=== PATIENT | male | born 1940 | race Caucasian/White ===

== ENCOUNTER 2018-02-01 10:03 | Outpatient (CLI) | payer OTHER ==
[~2018-02-01 10:03] MED LIST: ATACAND4 MG; CHLORTHALIDONE25 MG; CLOBETASOL 0.0515 GM; IMDUR 60MG60 MG; LIPITOR20 MG; PLAVIX75 MG; RECTICARE30 GM TP; RYTHMOL225 MG; TOPROL XL50 M1; TRADJENTA5 MG; ULTRACET PO; ZETIA10 MG
== END 2018-02-01 10:06 | disposition home or self-care (01) ==
LOC: LAB 10:03
DX: D51.0 Vitamin B12 deficiency anemia due to intrinsic factor deficiency (principal); D51.1 Vitamin B12 deficiency anemia due to selective vitamin B12 malabsorption with proteinuria; D69.59 Other secondary thrombocytopenia; D47.2 Monoclonal gammopathy; Z95.1 Presence of aortocoronary bypass graft; I10 Essential (primary) hypertension; E08.65 Diabetes mellitus due to underlying condition with hyperglycemia; J03.90 Acute tonsillitis, unspecified; D50.8 Other iron deficiency anemias; D51.8 Other vitamin B12 deficiency anemias; E78.4 Other hyperlipidemia; I73.89 Other specified peripheral vascular diseases; K75.89 Other specified inflammatory liver diseases

== ENCOUNTER 2018-06-22 10:43 | Outpatient (CLI) | payer OTHER | END 2018-06-22 11:51 | disposition home or self-care (01) | LOC: LAB 10:43 | DX: N18.3 Chronic kidney disease, stage 3 (moderate) (principal); E11.21 Type 2 diabetes mellitus with diabetic nephropathy; D63.1 Anemia in chronic kidney disease; N30.00 Acute cystitis without hematuria; E78.4 Other hyperlipidemia; E03.8 Other specified hypothyroidism ==

== ENCOUNTER → 2018-06-24 11:25 | Outpatient (CLI) | payer OTHER | END | disposition home or self-care (01) | LOC: LAB 11:25 | DX: N18.3 Chronic kidney disease, stage 3 (moderate) (principal); E11.21 Type 2 diabetes mellitus with diabetic nephropathy; D63.1 Anemia in chronic kidney disease; N30.00 Acute cystitis without hematuria; E78.4 Other hyperlipidemia; E03.8 Other specified hypothyroidism ==

== ENCOUNTER 2018-07-22 10:18 | Outpatient (CLI) | payer OTHER | END 2018-07-22 10:23 | disposition home or self-care (01) | LOC: LAB 10:18 | DX: N40.0 Benign prostatic hyperplasia without lower urinary tract symptoms (principal); R97.20 Elevated prostate specific antigen [PSA]; R31.9 Hematuria, unspecified ==

== ENCOUNTER 2018-08-22 08:17 | Outpatient (CLI) | payer OTHER | END 2018-08-22 08:23 | disposition home or self-care (01) | LOC: LAB 08:17 | DX: D69.59 Other secondary thrombocytopenia (principal); D51.0 Vitamin B12 deficiency anemia due to intrinsic factor deficiency; D51.1 Vitamin B12 deficiency anemia due to selective vitamin B12 malabsorption with proteinuria; I48.2 Chronic atrial fibrillation; D47.2 Monoclonal gammopathy; Z95.1 Presence of aortocoronary bypass graft; I10 Essential (primary) hypertension; E08.65 Diabetes mellitus due to underlying condition with hyperglycemia; I73.89 Other specified peripheral vascular diseases; K75.89 Other specified inflammatory liver diseases; J03.80 Acute tonsillitis due to other specified organisms; D50.8 Other iron deficiency anemias; D51.8 Other vitamin B12 deficiency anemias; E78.2 Mixed hyperlipidemia; E03.8 Other specified hypothyroidism ==

== ENCOUNTER 2018-08-22 09:20 | Outpatient (CLI) | payer OTHER | END 2018-08-22 11:13 | disposition home or self-care (01) | LOC: SONOGRAMA 09:20 | DX: R31.9 Hematuria, unspecified (principal) ==

== ENCOUNTER 2018-10-08 15:37 | Outpatient (CLI) | payer OTHER | END 2018-10-08 16:07 | disposition home or self-care (01) | LOC: NUCLEAR 15:37 | DX: I67.89 Other cerebrovascular disease (principal) ==

== ENCOUNTER 2018-12-05 10:12 | Outpatient (CLI) | payer OTHER | END 2018-12-05 13:15 | disposition home or self-care (01) | LOC: LAB 10:12 | DX: I10 Essential (primary) hypertension (principal); I11.9 Hypertensive heart disease without heart failure; I25.10 Atherosclerotic heart disease of native coronary artery without angina pectoris; E78.49 Other hyperlipidemia; D69.59 Other secondary thrombocytopenia; D51.0 Vitamin B12 deficiency anemia due to intrinsic factor deficiency; D51.1 Vitamin B12 deficiency anemia due to selective vitamin B12 malabsorption with proteinuria; I48.2 Chronic atrial fibrillation; D47.2 Monoclonal gammopathy; Z95.1 Presence of aortocoronary bypass graft; E08.65 Diabetes mellitus due to underlying condition with hyperglycemia; I73.9 Peripheral vascular disease, unspecified; K75.9 Inflammatory liver disease, unspecified; J03.90 Acute tonsillitis, unspecified; D50.8 Other iron deficiency anemias; D51.8 Other vitamin B12 deficiency anemias; E78.2 Mixed hyperlipidemia; E03.8 Other specified hypothyroidism; R97.0 Elevated carcinoembryonic antigen [CEA]; R97.8 Other abnormal tumor markers; N18.3 Chronic kidney disease, stage 3 (moderate); E11.21 Type 2 diabetes mellitus with diabetic nephropathy; D63.1 Anemia in chronic kidney disease; N30.00 Acute cystitis without hematuria ==

== ENCOUNTER 2018-12-05 11:38 | Outpatient (CLI) | payer OTHER | END 2018-12-05 11:41 | disposition home or self-care (01) | LOC: SONOGRAMA 11:38 | DX: R10.9 Unspecified abdominal pain (principal); R31.9 Hematuria, unspecified; N18.3 Chronic kidney disease, stage 3 (moderate) ==

== ENCOUNTER 2018-12-09 10:50 | Outpatient (CLI) | payer OTHER | END 2018-12-09 11:06 | disposition home or self-care (01) | LOC: LAB 10:50 | DX: I10 Essential (primary) hypertension (principal); I11.9 Hypertensive heart disease without heart failure; I25.10 Atherosclerotic heart disease of native coronary artery without angina pectoris; E78.49 Other hyperlipidemia; N18.3 Chronic kidney disease, stage 3 (moderate); E11.21 Type 2 diabetes mellitus with diabetic nephropathy; N30.00 Acute cystitis without hematuria; E03.8 Other specified hypothyroidism ==

== ENCOUNTER → 2019-02-10 | Outpatient (CLI) | payer OTHER | END | disposition home or self-care (01) | LOC: NUCLEAR 08:27 | DX: K62.5 Hemorrhage of anus and rectum (principal); K59.09 Other constipation; Z86.010 Personal history of colon polyps | CPT/HCPCS: 78264; A9541 ==

== ENCOUNTER → 2019-02-20 | Day surgery (SDC) | payer OTHER | END | disposition home or self-care (01) | LOC: ADM 02-17 07:00 → AMB-ENDOS 06:25 → ADM 02-21 09:45 | DX: D12.0 Benign neoplasm of cecum (principal) ==

== ENCOUNTER → 2019-09-24 09:05 | Outpatient (CLI) | payer OTHER | END | disposition home or self-care (01) | LOC: LAB 09:05 | DX: D12.0 Benign neoplasm of cecum (principal); Z86.010 Personal history of colon polyps; D50.8 Other iron deficiency anemias; I10 Essential (primary) hypertension; D69.59 Other secondary thrombocytopenia; D51.0 Vitamin B12 deficiency anemia due to intrinsic factor deficiency; D51.1 Vitamin B12 deficiency anemia due to selective vitamin B12 malabsorption with proteinuria; D47.2 Monoclonal gammopathy; Z95.1 Presence of aortocoronary bypass graft; E78.49 Other hyperlipidemia; E08.65 Diabetes mellitus due to underlying condition with hyperglycemia; I73.89 Other specified peripheral vascular diseases; K75.89 Other specified inflammatory liver diseases; J03.90 Acute tonsillitis, unspecified; D51.8 Other vitamin B12 deficiency anemias; K90.89 Other intestinal malabsorption; R97.0 Elevated carcinoembryonic antigen [CEA]; R97.20 Elevated prostate specific antigen [PSA] ==

== ENCOUNTER 2019-09-29 08:46 | Day surgery (SDC) | payer OTHER | END 2019-09-29 12:49 | disposition home or self-care (01) | LOC: AMB-ENDOS 08:46 | DX: D12.0 Benign neoplasm of cecum (principal); K57.30 Diverticulosis of large intestine without perforation or abscess without bleeding ==

== ENCOUNTER → 2019-11-07 | Outpatient (CLI) | payer OTHER | END | disposition home or self-care (01) | LOC: MRI 09:23 | DX: G45.1 Carotid artery syndrome (hemispheric) (principal); I63.30 Cerebral infarction due to thrombosis of unspecified cerebral artery | CPT/HCPCS: 70544 ==

== ENCOUNTER → 2020-03-26 08:43 | Outpatient (CLI) | payer OTHER | END | disposition home or self-care (01) | LOC: LAB 08:43 | PROVIDERS: ATTEND Internal Medicine Hematology & Oncology | DX: D50.8 Other iron deficiency anemias (principal); I10 Essential (primary) hypertension; D69.59 Other secondary thrombocytopenia; D51.0 Vitamin B12 deficiency anemia due to intrinsic factor deficiency; D51.1 Vitamin B12 deficiency anemia due to selective vitamin B12 malabsorption with proteinuria; I48.20 Chronic atrial fibrillation, unspecified; D47.2 Monoclonal gammopathy; Z95.1 Presence of aortocoronary bypass graft; E78.49 Other hyperlipidemia; E08.65 Diabetes mellitus due to underlying condition with hyperglycemia; I73.89 Other specified peripheral vascular diseases; K75.89 Other specified inflammatory liver diseases; J03.90 Acute tonsillitis, unspecified; D51.8 Other vitamin B12 deficiency anemias; E55.9 Vitamin D deficiency, unspecified; K90.89 Other intestinal malabsorption; E03.8 Other specified hypothyroidism ==

== ENCOUNTER 2020-07-24 10:07 | Outpatient (CLI) | payer OTHER | END 2020-07-24 13:48 | disposition home or self-care (01) | LOC: LAB 10:07 | PROVIDERS: ATTEND Surgery | DX: K59.09 Other constipation (principal); D12.0 Benign neoplasm of cecum; Z86.010 Personal history of colon polyps ==

== ENCOUNTER → 2020-11-20 09:34 | Outpatient (CLI) | payer OTHER | END | disposition home or self-care (01) | LOC: LAB 09:34 | PROVIDERS: ATTEND Internal Medicine Hematology & Oncology | DX: D50.8 Other iron deficiency anemias (principal); I10 Essential (primary) hypertension; D51.8 Other vitamin B12 deficiency anemias; E55.9 Vitamin D deficiency, unspecified; E78.2 Mixed hyperlipidemia; E03.8 Other specified hypothyroidism; R97.0 Elevated carcinoembryonic antigen [CEA]; R97.8 Other abnormal tumor markers; R97.20 Elevated prostate specific antigen [PSA]; D69.49 Other primary thrombocytopenia; D51.0 Vitamin B12 deficiency anemia due to intrinsic factor deficiency; D51.1 Vitamin B12 deficiency anemia due to selective vitamin B12 malabsorption with proteinuria; D47.2 Monoclonal gammopathy; Z95.1 Presence of aortocoronary bypass graft; E08.65 Diabetes mellitus due to underlying condition with hyperglycemia; I73.89 Other specified peripheral vascular diseases; K75.89 Other specified inflammatory liver diseases; J03.81 Acute recurrent tonsillitis due to other specified organisms ==

== ENCOUNTER 2021-06-17 08:00 | Outpatient (CLI) | payer OTHER | END 2021-06-17 08:30 | disposition home or self-care (01) | LOC: PPH VACUNA 08:00 | DX: Z23 Encounter for immunization (principal) ==

== ENCOUNTER 2021-06-17 10:16 | Outpatient (CLI) | payer OTHER | END 2021-06-17 10:34 | disposition home or self-care (01) | LOC: LAB 10:16 | PROVIDERS: ATTEND Internal Medicine Hematology & Oncology | DX: D50.8 Other iron deficiency anemias (principal); R79.89 Other specified abnormal findings of blood chemistry; I10 Essential (primary) hypertension; R74.02 Elevation of levels of lactic acid dehydrogenase [LDH]; K76.89 Other specified diseases of liver; D51.8 Other vitamin B12 deficiency anemias; E55.9 Vitamin D deficiency, unspecified; E03.8 Other specified hypothyroidism; R97.0 Elevated carcinoembryonic antigen [CEA]; R97.8 Other abnormal tumor markers; R97.20 Elevated prostate specific antigen [PSA]; D69.59 Other secondary thrombocytopenia; D51.0 Vitamin B12 deficiency anemia due to intrinsic factor deficiency; D51.1 Vitamin B12 deficiency anemia due to selective vitamin B12 malabsorption with proteinuria; D47.2 Monoclonal gammopathy; Z95.1 Presence of aortocoronary bypass graft; E78.49 Other hyperlipidemia; E08.65 Diabetes mellitus due to underlying condition with hyperglycemia; I73.89 Other specified peripheral vascular diseases; K75.89 Other specified inflammatory liver diseases; J03.90 Acute tonsillitis, unspecified ==

== ENCOUNTER 2021-12-17 10:49 | Outpatient (CLI) | payer OTHER | END 2021-12-17 15:00 | disposition home or self-care (01) | LOC: LAB 10:49 | PROVIDERS: ATTEND Internal Medicine Hematology & Oncology | DX: D50.8 Other iron deficiency anemias (principal); R79.9 Abnormal finding of blood chemistry, unspecified; I10 Essential (primary) hypertension; R74.02 Elevation of levels of lactic acid dehydrogenase [LDH]; K76.89 Other specified diseases of liver; D51.8 Other vitamin B12 deficiency anemias; E55.9 Vitamin D deficiency, unspecified; E78.2 Mixed hyperlipidemia; E03.8 Other specified hypothyroidism; R97.0 Elevated carcinoembryonic antigen [CEA]; R97.8 Other abnormal tumor markers; R97.20 Elevated prostate specific antigen [PSA]; D69.59 Other secondary thrombocytopenia; D51.1 Vitamin B12 deficiency anemia due to selective vitamin B12 malabsorption with proteinuria; D51.0 Vitamin B12 deficiency anemia due to intrinsic factor deficiency; I48.20 Chronic atrial fibrillation, unspecified; D47.2 Monoclonal gammopathy; Z95.1 Presence of aortocoronary bypass graft; E78.5 Hyperlipidemia, unspecified; E08.65 Diabetes mellitus due to underlying condition with hyperglycemia; I73.9 Peripheral vascular disease, unspecified; K75.9 Inflammatory liver disease, unspecified; J03.90 Acute tonsillitis, unspecified ==

== ENCOUNTER 2022-02-13 06:00 | Day surgery (SDC) | payer OTHER | END 2022-02-13 13:40 | disposition home or self-care (01) | LOC: CIR.AMB 06:00 | PROVIDERS: ATTEND Surgery | DX: D37.4 Neoplasm of uncertain behavior of colon (principal); I25.10 Atherosclerotic heart disease of native coronary artery without angina pectoris; K57.30 Diverticulosis of large intestine without perforation or abscess without bleeding; K59.09 Other constipation; K62.5 Hemorrhage of anus and rectum; K64.2 Third degree hemorrhoids; E03.9 Hypothyroidism, unspecified; E10.9 Type 1 diabetes mellitus without complications; Z95.1 Presence of aortocoronary bypass graft; Z79.01 Long term (current) use of anticoagulants; Z20.822 Contact with and (suspected) exposure to COVID-19 ==

== ENCOUNTER → 2022-03-10 | Outpatient (CLI) | payer OTHER | END | disposition home or self-care (01) | LOC: PPH VACUNA 14:00 | PROVIDERS: ATTEND Emergency Medicine Pediatric Emergency Medicine | DX: Z23 Encounter for immunization (principal) ==

== ENCOUNTER 2022-06-19 11:15 | Outpatient (CLI) | payer OTHER | END 2022-06-19 11:16 | disposition home or self-care (01) | LOC: LAB 11:15 | PROVIDERS: ATTEND Internal Medicine Hematology & Oncology | DX: D50.8 Other iron deficiency anemias (principal); R79.9 Abnormal finding of blood chemistry, unspecified; I10 Essential (primary) hypertension; R74.02 Elevation of levels of lactic acid dehydrogenase [LDH]; K76.89 Other specified diseases of liver; D51.8 Other vitamin B12 deficiency anemias; E55.9 Vitamin D deficiency, unspecified; E78.2 Mixed hyperlipidemia; E03.8 Other specified hypothyroidism; R97.0 Elevated carcinoembryonic antigen [CEA]; R97.20 Elevated prostate specific antigen [PSA]; D69.59 Other secondary thrombocytopenia; D51.0 Vitamin B12 deficiency anemia due to intrinsic factor deficiency; D51.1 Vitamin B12 deficiency anemia due to selective vitamin B12 malabsorption with proteinuria; D47.2 Monoclonal gammopathy; E78.5 Hyperlipidemia, unspecified; E08.65 Diabetes mellitus due to underlying condition with hyperglycemia; K75.9 Inflammatory liver disease, unspecified; J03.90 Acute tonsillitis, unspecified; Z95.1 Presence of aortocoronary bypass graft ==

== ENCOUNTER 2022-09-22 13:17 | Outpatient (CLI) | payer OTHER | END 2022-09-22 13:27 | disposition home or self-care (01) | LOC: PPH VACUNA 13:17 | PROVIDERS: ATTEND Emergency Medicine Pediatric Emergency Medicine | DX: Z23 Encounter for immunization (principal) ==

== ENCOUNTER 2023-01-11 09:50 | Outpatient (CLI) | payer OTHER | END 2023-01-11 09:56 | disposition home or self-care (01) | LOC: TOM 09:50 | PROVIDERS: ATTEND Specialist | DX: M62.08 Separation of muscle (nontraumatic), other site (principal) ==

== ENCOUNTER → 2023-02-21 10:16 | Outpatient (CLI) | payer OTHER | END | disposition home or self-care (01) | LOC: LAB 10:16 | PROVIDERS: ATTEND Internal Medicine Hematology & Oncology | DX: D50.8 Other iron deficiency anemias (principal); R79.9 Abnormal finding of blood chemistry, unspecified; I10 Essential (primary) hypertension; R74.02 Elevation of levels of lactic acid dehydrogenase [LDH]; K76.89 Other specified diseases of liver; D51.8 Other vitamin B12 deficiency anemias; E55.9 Vitamin D deficiency, unspecified; E78.2 Mixed hyperlipidemia; E03.8 Other specified hypothyroidism; R97.0 Elevated carcinoembryonic antigen [CEA]; R97.8 Other abnormal tumor markers; R97.20 Elevated prostate specific antigen [PSA]; D69.59 Other secondary thrombocytopenia; D51.0 Vitamin B12 deficiency anemia due to intrinsic factor deficiency; D51.1 Vitamin B12 deficiency anemia due to selective vitamin B12 malabsorption with proteinuria; I48.20 Chronic atrial fibrillation, unspecified; Z95.1 Presence of aortocoronary bypass graft; E78.5 Hyperlipidemia, unspecified; E08.65 Diabetes mellitus due to underlying condition with hyperglycemia; I73.9 Peripheral vascular disease, unspecified; K75.9 Inflammatory liver disease, unspecified; J03.90 Acute tonsillitis, unspecified ==

== ENCOUNTER 2023-04-20 15:47 | Emergency (ER) | payer OTHER ==
[~2023-04-20] VITALS: Ht 177.8 cm; Wt 81.6 kg
[2023-04-20] MEDS ORDERED: MUCINEX D ER 61 EACH PO (20:45)
[2023-04-20] MEDS ORDERED: ZITHROMAX500 MG PO (20:45)
== END 2023-04-20 20:50 | disposition home or self-care (01) ==
LOC: ER 15:47
DX: J40 Bronchitis, not specified as acute or chronic (principal); E11.9 Type 2 diabetes mellitus without complications; I10 Essential (primary) hypertension; Z88.1 Allergy status to other antibiotic agents; Z88.6 Allergy status to analgesic agent; Z20.822 Contact with and (suspected) exposure to COVID-19

== ENCOUNTER → 2023-11-03 10:33 | Outpatient (CLI) | payer OTHER ==
[~2023-11-03 10:33] MED LIST changes: +MUCINEX D ER 61 EACH PO; +ZITHROMAX500 MG PO
[2023-11-03 11:48] LABS: HEMATOCRIT 40.7 % (39.0-48.0); HEMOGLOBIN 13.7 g/dL (13-16.00); MEAN CELL VOLUME 95.6 fL (80.0-100.00); MEAN CORPUSCULAR HEMOGLOBIN 32.2 pg (27.00-32.0); MEAN CORPUSCULAR HGB CONC 33.7 g/dl (32.0-36.0); PLATELET COUNT 158 K/uL (150-450); RED BLOOD COUNT 4.25 M/uL (4.00-6.00); RED CELL DISTRIBUTION WIDTH 13.1 % (11.5-14.5)
[2023-11-03 12:33] LABS: ALBUMIN 3.9 gm/dL (3.4-5.0); BILIRUBIN TOTAL 1.02 mg/dL (0.3-1.2); CALCIUM 9.1 mg/dL (8.5-10.1); CHOL HDL RATIO 2.2 (0-5.0); CREATININE SERUM 1.75 mg/dL (0.70-1.30); GFR 37.5; GLOBULINA 3.2 G/DL (2.4-3.5); POTASSIUM 4.26 mEq/L (3.5-5.1); PROSTATIC SPECIFIC ANTIGEN 1.22 NG/ML (0.010-4.00); TOTAL PROTEIN 7.1 gm/dL (6.4-8.2); TSH 1.13 uIU/mL (0.358-3.74)
[2023-11-04 12:53] LABS: FOLIC ACID > 20.00 ng/ml (4.78-20); VITAMIN D3 25 HYDROXY 45.17 ng/ml (30-120)
[2023-11-05 09:40] LABS: MANUAL PLATELET COUNT 200
[2023-11-05 09:42] LABS: PLATELET ESTIMATE NORMAL (NORMAL)
== END | disposition home or self-care (01) ==
LOC: LAB 10:33
PROVIDERS: ATTEND Internal Medicine Hematology & Oncology
DX: D69.59 Other secondary thrombocytopenia (principal); D51.0 Vitamin B12 deficiency anemia due to intrinsic factor deficiency; D47.2 Monoclonal gammopathy; I10 Essential (primary) hypertension; E78.5 Hyperlipidemia, unspecified; E08.65 Diabetes mellitus due to underlying condition with hyperglycemia; I73.9 Peripheral vascular disease, unspecified; K75.9 Inflammatory liver disease, unspecified; J03.90 Acute tonsillitis, unspecified